=== PATIENT | female | born 1980 | race Caucasian/White ===

== ENCOUNTER 2019-04-04 17:56 | Emergency (ER) | payer OTHER ==
[~2019-04-04] VITALS: Ht 170.2 cm; Wt 116.1 kg
[~2019-04-04 17:56] MED LIST: ALBUTEROL INH IH; PRENATAL 1 PLU1 EACH PO; SYNTHROID 0.10.1 M1 PG; ZPAK PO
[2019-04-04] MEDS ORDERED: [UNRECOGNIZED DRUG - OTHER] (18:13)
[2019-04-04] MEDS ORDERED: REGLAN 10 MG TA10 MG PO (19:32)
[2019-04-04 19:40] VITALS: BP 119/81
== END 2019-04-04 19:40 | disposition home or self-care (01) ==
LOC: M.ERS 17:56
DX: R51 Headache (principal)